=== PATIENT | female | born 1955 | race Two or more races ===

== ENCOUNTER 2018-08-27 07:42 | Day surgery (SDC) | payer OTHER ==
[2018-08-26 11:14] VITALS: BMI 28.0
[2018-08-27] MEDS ORDERED: PROPOFOL 20 ML ONE ×3 (08:37→09:37)
[2018-08-27] MEDS ORDERED: LIDOCAINE HCL/PF 2% SDV 5ML VIAL ONE (08:38)
[2018-08-27] MEDS ORDERED: DEXAMETHASONE SOD PHOSPHATE 4 MG/1 ML VIAL ONE ×2 (09:34→09:36)
[2018-08-27] MEDS ORDERED: ePHEDrine SULFATE 50 MG/1 ML AMPULE ONE (09:44)
[2018-08-27] MEDS ORDERED: GLYCOPYRROLATE 0.2 MG/1 ML VIAL ONE (09:56)
[2018-08-27] MEDS ORDERED: ONDANSETRON 4 MG/2 ML VIAL IVPUSH PRN (10:09)
[2018-08-27] MEDS ORDERED: oxyCODONE HCL 5 MG TABLET PO PRN ×2 (10:09)
[2018-08-27] MEDS ORDERED: LACTATED RINGERS SOLUTION 1,000 ML IV SCH (10:15)
[2018-08-27] MEDS ORDERED: KETOROLAC TROMETHAMINE 30 MG/1 ML VIAL ONE (10:27)
[2018-08-27 12:13] VITALS: TEMP 98.2
--- NOTE | 2018-08-27 13:36 | HP ---
History & Physical Update - History History: No Change - Physical Physical: No Change - Assessment Assessment: No Change - Plan Plan: No Change (Consent signed and witnessed)
--- NOTE | 2018-08-27 13:43 | OP ---
Operative Note - Note: Operative Date: 08/27/18 Pre-Operative Diagnosis: 63yo P3 with Postmenopausal bleeding, Submucosal fibroid Operation: Hysteroscopy, Myomectomy, D&C Findings: 4cm submucosal fibroid - complete resection Post-Operative Diagnosis: Same as Pre-op Surgeon: Cookie Carr Anesthesiologist/CUSTOMER PROGRAM MANAGER: Keke Herring Anesthesia: MAC Specimens Removed: 1. Fibroid shavings and endometrial curetting Estimated Blood Loss (mls): 5 Drains & Tubes with Location: Fluid deficit - 350cc Drains, Volume Out (mls): 150 Fluid Volume Replaced (mls): 1,000 Operative Report Dictated: Yes
[2018-08-27 14:07] VITALS: BP 127/78; PULSE 68
--- NOTE | 2018-08-28 18:32 | PATH ---
Surgical Pathology Report Patient Name: TING MCADAMS [facility]. Rec. #: [id number] /Age/Gender: 1955 (Age: 63) / F Account: [id number] Location: [facility] SURGICAL Taken: 08/27/2018 Received: 08/27/2018 Reported: 08/28/2018 Physicians: Cookie Carr M.D. Specimen(s) Received FIBROIDS AND ENDOMETRIAL CURETTINGS Clinical History Postmenopausal bleeding Final Diagnosis FIBROIDS AND ENDOMETRIAL CURETTINGS: FRAGMENTS OF SMOOTH MUSCLE BUNDLES, CONSISTENT WITH LEIOMYOMA. SEPARATE ENDOMETRIAL POLYP. SCANTY WEAKLY PROLIFERATIVE ENDOMETRIUM. Electronically Signed Skylar Zhang M.D. Gross Description Received in formalin labeled "fibroids and endometrial curettings," is a 5.5 x 4.4 x 0.6 cm aggregate of cheek firm tissue fragments admixed with blood clot. Also received within the same container is a 5 g, 2.1 x 1.5 x 0.9 cm cheek, rubbery nodule, consistent with a fibroid. Sectioning of the nodule reveals cheek, firm to rubbery parenchyma. [employer] sections are submitted in 4 cassettes as follows: 5-9-nfsjjudoqdsnom fragments; 4-applications sales representative nodule. /08/27/2018 saudi08/27/2018
--- NOTE | 2018-08-30 13:31 | OP ---
DATE OF OPERATION: 08/27/2018 PREOPERATIVE DIAGNOSIS: A 63-year-old para 3 with postmenopausal bleeding, submucosal fibroid. POSTOPERATIVE DIAGNOSIS: A 63-year-old para 3 with postmenopausal bleeding, submucosal fibroid, stage 0 fibroid. OPERATION: Hysteroscopy, myomectomy, dilatation and curettage. FINDINGS: submucosal fibroid, complete resection. SURGEON: Cookie Carr MD ANESTHESIOLOGIST: Keke Herring MD ANESTHESIA: MAC. SPECIMEN REMOVED: Fibroid shavings and endometrial curettings. ESTIMATED BLOOD LOSS: 5 mL. DESCRIPTION OF THE OPERATIVE PROCEDURE: After assuring informed consent patient was brought to the operating room where she was placed in dorsal lithotomy position. Perineum and vagina were prepped and draped in sterile fashion. The Symphion hysteroscope 6.3 mm was assembled, white balanced and primed. The Bauer retractors were placed into the vagina. Cervix was articulated with single-tooth tenaculum and dilated with gradually increasing in size DeLee dilators. The hysteroscope was placed atraumatically into the uterus. The Symphion resectoscope device was introduced through the operative port and posterior wall submucosal fibroid was resected by gradually shaving and resecting portions of the fibroid. Approximately 1 hour 15 minutes spent resecting the fibroid in its entirety. The polyp forceps used to remove large portion of the fibroid. The rest of the shavings were suctioned into the resectoscope. Curettage was used with sharp curet to obtain endometrial curettings. Subsequently all instruments were removed from uterus, cervix and vagina. Estimated blood loss 5 mL. Fluid deficit 350 mL; 150 mL were drained from the bladder. Patient received 1000 mL of IV fluids. Extubated, placed in the supine position and brought to the recovery room in stable condition. Marina [id number]
== END 2018-08-27 14:00 | disposition home or self-care (01) ==
LOC: JASU-SURG 07:42
PROVIDERS: ATTEND Obstetrics & Gynecology
PROC: 0UJD8ZZ Inspection of Uterus and Cervix, Via Natural or Artificial Opening Endoscopic (ICD-10-PCS; 2018-08-27)
PROC: 0UB98ZZ Excision of Uterus, Via Natural or Artificial Opening Endoscopic (ICD-10-PCS; principal; 2018-08-27 09:00)
PROC: 0UDB7ZX Extraction of Endometrium, Via Natural or Artificial Opening, Diagnostic (ICD-10-PCS; 2018-08-27 09:00)
DX: N95.0 Postmenopausal bleeding (principal); D25.0 Submucous leiomyoma of uterus
CPT/HCPCS: 88305-TC; 94760